=== PATIENT | male | born 1990 | race African-American/Black ===

== ENCOUNTER 2017-09-16 23:05 | Emergency (ER) | payer SELFPAY ==
[2017-09-16 23:30] LABS: Bilirubin Negative (Negative); Blood, Urine Negative (Negative); Clarity CLEAR (Clear); Glucose, Urine (Dipstick) Negative (Negative); Leukocyte Negative (Negative); Nitrite Negative (Negative); Protein, Urine (Dipstick) Negative (Neg-Trace)
[2017-09-16 23:40] LABS: #Basophils 0.1 thou/uL (0.0-0.2); #Eosinphils 0.1 thou/uL (0.0-0.7); #Lymphocytes 3.8 thou/uL (1.20-3.40); #Monocytes 0.5 thou/uL (0.11-0.59); #Neutrophils 4.6 thou/uL (1.40-6.50); %Basophils 0.8 % (0.0-1.0); %Eosinophils 0.8 % (0.0-10.0); %Lymphocytes 41.9 % (21.0-51.0); %Monocytes 5.7 % (0.0-10.0); %Neutrophils 50.7 % (42.0-75.0); Hemoglobin 15.5 g/dL (14.0-18.0); Mean Corpuscular HGB CONC 33.8 g/dL (32.0-36.0); Mean Corpuscular Hemoglobin 29.3 pg (27.0-31.0); Mean Corpuscular Volume 86.8 fl (80.0-94.0); Platelet Count 238 thou/uL (130-400); RBC Distribution Width 11.7 % (11.5-14.5); Red Blood Cell (RBC) Count 5.28 mill/uL (4.70-6.10)
[2017-09-17] LABS: ALT (SGPT) 13 U/L (8-55); AST (SGOT) 18 U/L (5-34); Albumin 4.5 g/dL (3.5-5.0); Alkaline Phosphatase 65 U/L (40-150); Anion Gap 13 mmol/L (10-20); BUN (Urea Nitrogen) 13 mg/dL (8.9-20.6); Bilirubin, Total 0.4 mg/dL (0.2-1.2); Calc. Creatinine Clearance 0 mL/min (70-130); Calcium 9.9 mg/dL (7.8-10.44); Carbon Dioxide 26 mmol/L (22-29); Chloride 103 mmol/L (98-107); Estimated GFR-MDRD Greater than 90; Globulin 3.9 g/dL (2.4-3.5); Glucose 93 mg/dL (70-105); Lipase 12 U/L (8-78); Potassium 4.1 mmol/L (3.5-5.1); Protein, Total 8.4 g/dL (6.0-8.3); Sodium 138 mmol/L (136-145)
[2017-09-17] MEDS ORDERED: Ondansetron ODT 8 MG TAB ONE (00:17)
== END 2017-09-17 01:25 | disposition home or self-care (01) ==
LOC: ERS 23:05
DX: K52.9 Noninfective gastroenteritis and colitis, unspecified (principal)
CPT/HCPCS: 36415; 80053; 81003; 83690; 85025; 99284

== ENCOUNTER 2023-12-21 21:41 | Inpatient (IN) | payer OTHER ==
[~2023-12-21 21:41] MED LIST: Iopamidol-370 76% 500 ML MDV (1 ML CHARGE) ONE
[2023-12-21] MEDS ORDERED: Sodium Chloride 0.9% 100 ML ONE (21:44)
[2023-12-21] MEDS ORDERED: Boostrix 0.5 ML (Tdap) VIAL (>/=7 yrs of age) ONE (21:44)
[2023-12-21] MEDS ORDERED: CEFAZOLIN 2 GM VIAL ONE (21:44)
[2023-12-21 21:58] LABS: #Basophils 0.05 10x3/uL (0.0-0.2); %Basophils 0.4 % (0.0-1.0); %Eosinophils 1.7 % (0.0-10.0); %Lymphocytes 52.3 % (21.0-51.0); %Neutrophils 39.2 % (42.0-75.0); Hemoglobin 14.5 g/dL (14.0-18.0); Mean Corpuscular HGB CONC 33.7 g/dL (32.0-36.0); Mean Corpuscular Hemoglobin 28.7 pg (27.0-31.0); Mean Corpuscular Volume 85.1 fL (78.0-98.0); Platelet Count 277 10x3/uL (130-400); RBC Distribution Width 12.5 % (11.5-14.5); Red Blood Cell (RBC) Count 5.05 mill/uL (4.70-6.10)
[2023-12-21] MEDS ORDERED: fentaNYL 50 mcg/mL 1 mL Vial ONE ×2 (21:59→22:45)
[2023-12-21 22:16] LABS: ALT (SGPT) 27 U/L (8-55); AST (SGOT) 25 U/L (5-34); Albumin 3.5 g/dL (3.5-5.0); Alkaline Phosphatase 65 U/L (40-110); Anion Gap 15 mmol/L (10-20); BUN (Urea Nitrogen) 13 mg/dL (8.9-20.6); Bilirubin, Total 0.3 mg/dL (0.2-1.2); Calc. Creatinine Clearance 0 mL/min (70-130); Calcium 9.2 mg/dL (7.8-10.44); Carbon Dioxide 21 mmol/L (22-29); Chloride 108 mmol/L (98-107); Estimated GFR 85; Globulin 4.1 g/dL (2.4-3.5); Glucose 129 mg/dL (70-105); Potassium 3.5 mmol/L (3.5-5.1); Protein, Total 7.6 g/dL (6.0-8.3); Sodium 140 mmol/L (136-145)
[2023-12-21] MEDS ORDERED: Ketamine In 0.9 % NaCl 50 MG/5 ML SYRINGE ONE (23:25)
[2023-12-22] MEDS ORDERED: Glucagon 1 MG/ML KIT IM PRN (00:45)
[2023-12-22] MEDS ORDERED: HYDROcodone/Acetaminophen 10/325 mg Tablet PO PRN (00:45)
[2023-12-22] MEDS ORDERED: Ondansetron ODT 4 MG TAB PO PRN (00:45)
[2023-12-22] MEDS ORDERED: Dextrose 5% in Water 1,000 ML IV PRN (00:45)
[2023-12-22] MEDS ORDERED: Ondansetron PF 4 MG/2 ML Vial IVP PRN (00:45)
[2023-12-22] MEDS ORDERED: Dextrose 50% Abboject 50 ML SYRINGE SLOW IVP PRN (00:45)
[2023-12-22] MEDS ORDERED: hydrALAZINE 20 MG/ML VIAL SLOW IVP PRN (00:45)
[2023-12-22] MEDS ORDERED: fentaNYL 50 mcg/mL 1 mL Vial ONE (01:09)
[2023-12-22] MEDS: Morphine 4 MG/ML VIAL SLOW IVP PRN (02:16)
[2023-12-22] MEDS: Lactated Ringer's 1,000 ML IV SCH (02:48)
[2023-12-22] MEDS: HYDROmorphone 0.5 MG/0.5 ML SYRINGE SLOW IVP SCH (03:05)
[2023-12-22] MEDS ORDERED: HYDROmorphone/PF 10 MG in Sodium Chloride 0.9% 99 ML IVPB PRN (03:30)
[2023-12-22] MEDS: HYDROmorphone/PF 10 MG in Sodium Chloride 0.9% 99 ML IVPB PRN (05:11)
[2023-12-22 05:28] LABS: #Basophils 0.03 10x3/uL (0.0-0.2); #Eosinphils Less than 0.03 10x3/uL (0.0-0.7); %Basophils 0.2 % (0.0-1.0); %Lymphocytes 8.3 % (21.0-51.0); %Monocytes 10.7 % (0.0-10.0); %Neutrophils 80.4 % (42.0-75.0); Hematocrit 37.6 % (42.0-52.0); Hemoglobin 12.7 g/dL (14.0-18.0); Mean Corpuscular HGB CONC 33.8 g/dL (32.0-36.0); Mean Corpuscular Hemoglobin 27.9 pg (27.0-31.0); Mean Corpuscular Volume 82.6 fL (78.0-98.0); Mean Platelet Volume 9.8 fL (7.4-10.4); Platelet Count 238 10x3/uL (130-400); RBC Distribution Width 12.1 % (11.5-14.5); Red Blood Cell (RBC) Count 4.55 mill/uL (4.70-6.10)
[2023-12-22 05:56] LABS: Anion Gap 12 mmol/L (10-20); BUN (Urea Nitrogen) 13 mg/dL (8.9-20.6); Calc. Creatinine Clearance 125 mL/min (70-130); Calcium 8.8 mg/dL (7.8-10.44); Carbon Dioxide 24 mmol/L (22-29); Chloride 109 mmol/L (98-107); Estimated GFR 92; Glucose 146 mg/dL (70-105); Potassium 4.2 mmol/L (3.5-5.1); Sodium 141 mmol/L (136-145)
[2023-12-22] MEDS: Ketorolac Tromethamine 30 MG (1 mL) VIAL IVP SCH (06:10)
[2023-12-22] MEDS ORDERED: Vancomycin 1 GM VIAL ONE (08:01)
[2023-12-22] MEDS ORDERED: CEFAZOLIN 2 GM VIAL ONE (08:10)
[2023-12-22] MEDS ORDERED: Sodium Chloride 0.9% 100 ML ONE (08:10)
[2023-12-22] MEDS ORDERED: fentaNYL PF 100 MCG/2 ML SYRINGE ONE ×2 (08:11→10:07)
[2023-12-22] MEDS ORDERED: Midazolam HCl 2 mg/2 ml Vial ONE (08:11)
[2023-12-22] MEDS ORDERED: PROPOFOL 20 ML ONE (08:11)
[2023-12-22] MEDS ORDERED: Dexmedetomidine 200 MCG/2 ML VIAL ONE ×2 (08:11→08:20)
[2023-12-22] MEDS ORDERED: Ketamine In 0.9 % NaCl 50 MG/5 ML SYRINGE ONE (08:12)
[2023-12-22] MEDS ORDERED: Rocuronium Bromide 10 MG/ML (10ML VIAL) ONE (08:30)
[2023-12-22] MEDS ORDERED: Lidocaine 1% PF 5 ML VIAL ONE (08:30)
[2023-12-22] MEDS ORDERED: PHENYLEPHRINE-NS 100 MCG/ML 10 ML SYRINGE ONE (08:44)
[2023-12-22] MEDS ORDERED: Dexamethasone 4 mg/ml Vial ONE (08:59)
[2023-12-22] MEDS: Famotidine 20 MG TAB PO SCH (10:27)
[2023-12-22] MEDS ORDERED: ePHEDrine Sulfate 50 MG/10 ML VIAL ONE (10:42)
[2023-12-22] MEDS ORDERED: Albumin 5% 500 ML ONE (10:43)
[2023-12-22] MEDS ORDERED: HYDROmorphone 2 MG/ML VIAL ONE (11:02)
[2023-12-22] MEDS ORDERED: SUGAMMADEX SODIUM 200 MG/2 ML VIAL ONE (12:04)
[2023-12-22] MEDS ORDERED: Ondansetron PF 4 MG/2 ML Vial ONE (12:27)
[2023-12-22] MEDS ORDERED: Communication Order-Pharmacy FS SCH (13:15)
[2023-12-22] MEDS: CEFAZOLIN 2 GM in Sodium Chloride 0.9% 100 ML IVPB SCH (15:45)
[2023-12-23 05:30] LABS: ALT (SGPT) 20 U/L (8-55); AST (SGOT) 60 U/L (5-34); Albumin 2.6 g/dL (3.5-5.0); Alkaline Phosphatase 34 U/L (40-110); Anion Gap 11 mmol/L (10-20); BUN (Urea Nitrogen) 9 mg/dL (8.9-20.6); Bilirubin, Total 0.4 mg/dL (0.2-1.2); Calc. Creatinine Clearance 150 mL/min (70-130); Carbon Dioxide 25 mmol/L (22-29); Chloride 108 mmol/L (98-107); Estimated GFR 114; Globulin 2.2 g/dL (2.4-3.5); Glucose 102 mg/dL (70-105); Potassium 3.7 mmol/L (3.5-5.1); Protein, Total 4.8 g/dL (6.0-8.3); Sodium 140 mmol/L (136-145)
[2023-12-23 06:14] LABS: #Basophils Less than 0.03 10x3/uL (0.0-0.2); %Basophils 0.1 % (0.0-1.0); %Eosinophils 0.6 % (0.0-10.0); %Lymphocytes 30.3 % (21.0-51.0); %Monocytes 10.2 % (0.0-10.0); %Neutrophils 58.6 % (42.0-75.0); Hematocrit 21.4 % (42.0-52.0); Hemoglobin 7.2 g/dL (14.0-18.0); Mean Corpuscular HGB CONC 33.6 g/dL (32.0-36.0); Mean Corpuscular Hemoglobin 29.1 pg (27.0-31.0); Mean Corpuscular Volume 86.6 fL (78.0-98.0); Platelet Count 147 10x3/uL (130-400); RBC Distribution Width 12.6 % (11.5-14.5); Red Blood Cell (RBC) Count 2.47 mill/uL (4.70-6.10)
[2023-12-23 12:12] LABS: Hemoglobin 7.1 g/dL (14.0-18.0)
[2023-12-23] MEDS: Acetaminophen 325 MG TAB PO PRN (14:48)
[2023-12-23 23:13] LABS: Hematocrit 25.1 % (42.0-52.0); Hemoglobin 8.5 g/dL (14.0-18.0)
[2023-12-24 07:53] LABS: Hematocrit 23.1 % (42.0-52.0)
[2023-12-24] MEDS: Senokot S 8.6-50 MG TAB PO SCH (08:58)
[2023-12-25 06:38] LABS: #Basophils Less than 0.03 10x3/uL (0.0-0.2); %Basophils 0.1 % (0.0-1.0); %Eosinophils 0.7 % (0.0-10.0); %Lymphocytes 6.2 % (21.0-51.0); %Monocytes 6.3 % (0.0-10.0); %Neutrophils 85.8 % (42.0-75.0); Hematocrit 22.3 % (42.0-52.0); Hemoglobin 7.7 g/dL (14.0-18.0); Mean Corpuscular HGB CONC 34.5 g/dL (32.0-36.0); Mean Corpuscular Hemoglobin 28.5 pg (27.0-31.0); Mean Corpuscular Volume 82.6 fL (78.0-98.0); Mean Platelet Volume 9.9 fL (7.4-10.4); Platelet Count 178 10x3/uL (130-400); RBC Distribution Width 13.3 % (11.5-14.5)
[2023-12-25] MEDS: Piperacillin/Tazobactam 3.375 GM in Sodium Chloride 0.9% 100 ML IVPB SCH ×2 (08:44→17:33)
[2023-12-25] MEDS: Bacitracin Zinc Ointment 30 gm TUBE TOP SCH (11:42)
[2023-12-25] MEDS ORDERED: Piperacillin/Tazobactam 3.375 GM in Sodium Chloride 0.9% 100 ML IVPB SCH ×2 (12:00→14:00)
[2023-12-25] MEDS ORDERED: HYDROcodone/Acetaminophen 10/325 mg Tablet PO PRN ×2 (12:55)
[2023-12-25] MEDS ORDERED: HYDROcodone/Acetaminophen 5/325 mg Tablet PO PRN (14:02)
[2023-12-25] MEDS: HYDROcodone/Acetaminophen 5/325 mg Tablet PO PRN (17:32)
[2023-12-25] MEDS: Gabapentin 300 MG CAP PO SCH (17:33)
[2023-12-26 03:41] LABS: #Basophils Less than 0.03 10x3/uL (0.0-0.2); %Basophils 0.1 % (0.0-1.0); %Eosinophils 1.1 % (0.0-10.0); %Lymphocytes 9.5 % (21.0-51.0); %Monocytes 7.6 % (0.0-10.0); %Neutrophils 79.8 % (42.0-75.0); Hemoglobin 7.4 g/dL (14.0-18.0); Mean Corpuscular HGB CONC 35.2 g/dL (32.0-36.0); Mean Corpuscular Hemoglobin 28.7 pg (27.0-31.0); Mean Corpuscular Volume 81.4 fL (78.0-98.0); Mean Platelet Volume 9.7 fL (7.4-10.4); Platelet Count 218 10x3/uL (130-400); RBC Distribution Width 13.2 % (11.5-14.5); Red Blood Cell (RBC) Count 2.58 mill/uL (4.70-6.10)
[2023-12-26 04:06] LABS: ALT (SGPT) 85 U/L (8-55); AST (SGOT) 160 U/L (5-34); Alkaline Phosphatase 81 U/L (40-110); Anion Gap 13 mmol/L (10-20); BUN (Urea Nitrogen) 9 mg/dL (8.9-20.6); Bilirubin, Total 1.5 mg/dL (0.2-1.2); Calc. Creatinine Clearance 151 mL/min (70-130); Calcium 8.3 mg/dL (7.8-10.44); Carbon Dioxide 25 mmol/L (22-29); Chloride 103 mmol/L (98-107); Estimated GFR 116; Globulin 3.6 g/dL (2.4-3.5); Glucose 125 mg/dL (70-105); Potassium 2.7 mmol/L (3.5-5.1); Protein, Total 5.6 g/dL (6.0-8.3); Sodium 138 mmol/L (136-145)
[2023-12-26] MEDS: Potassium Chloride 20 MEQ TAB PO SCH ×2 (05:56→12:56)
[2023-12-26 06:30] LABS: Magnesium 2.1 mg/dL (1.6-2.6)
[2023-12-26] MEDS ORDERED: Electrolyte Replacement Protocol FS PRN (07:15)
[2023-12-26 11:56] LABS: Hematocrit 21.8 % (42.0-52.0); Hemoglobin 7.6 g/dL (14.0-18.0)
[2023-12-26 12:12] LABS: Anion Gap 11 mmol/L (10-20); BUN (Urea Nitrogen) 9 mg/dL (8.9-20.6); Calc. Creatinine Clearance 162 mL/min (70-130); Calcium 8.6 mg/dL (7.8-10.44); Carbon Dioxide 25 mmol/L (22-29); Chloride 105 mmol/L (98-107); Estimated GFR 119; Glucose 109 mg/dL (70-105); Potassium 2.9 mmol/L (3.5-5.1); Sodium 138 mmol/L (136-145)
[2023-12-27 07:23] LABS: #Basophils Less than 0.03 10x3/uL (0.0-0.2); %Basophils 0.1 % (0.0-1.0); %Eosinophils 1.6 % (0.0-10.0); %Lymphocytes 11.1 % (21.0-51.0); %Monocytes 11.8 % (0.0-10.0); %Neutrophils 70.6 % (42.0-75.0); Hematocrit 21.1 % (42.0-52.0); Mean Corpuscular HGB CONC 33.2 g/dL (32.0-36.0); Mean Corpuscular Hemoglobin 28.3 pg (27.0-31.0); Mean Corpuscular Volume 85.4 fL (78.0-98.0); Mean Platelet Volume 9.4 fL (7.4-10.4); Platelet Count 289 10x3/uL (130-400); RBC Distribution Width 13.5 % (11.5-14.5); Red Blood Cell (RBC) Count 2.47 mill/uL (4.70-6.10)
[2023-12-27 07:43] LABS: Hematocrit 20.8 % (42.0-52.0); Mean Corpuscular HGB CONC 33.7 g/dL (32.0-36.0); Mean Corpuscular Hemoglobin 28.6 pg (27.0-31.0); Mean Corpuscular Volume 84.9 fL (78.0-98.0); Mean Platelet Volume 9.5 fL (7.4-10.4); Platelet Count 283 10x3/uL (130-400); RBC Distribution Width 13.6 % (11.5-14.5); Red Blood Cell (RBC) Count 2.45 mill/uL (4.70-6.10)
[2023-12-27 08:00] LABS: Anion Gap 11 mmol/L (10-20); BUN (Urea Nitrogen) 10 mg/dL (8.9-20.6); Calc. Creatinine Clearance 159 mL/min (70-130); Calcium 8.5 mg/dL (7.8-10.44); Carbon Dioxide 27 mmol/L (22-29); Chloride 107 mmol/L (98-107); Estimated GFR 119; Glucose 94 mg/dL (70-105); Potassium 3.4 mmol/L (3.5-5.1); Sodium 142 mmol/L (136-145)
[2023-12-27 08:01] LABS: ALT (SGPT) 93 U/L (8-55); AST (SGOT) 115 U/L (5-34); Albumin 1.9 g/dL (3.5-5.0); Alkaline Phosphatase 105 U/L (40-110); Anion Gap 9 mmol/L (10-20); BUN (Urea Nitrogen) 11 mg/dL (8.9-20.6); Bilirubin, Total 1.3 mg/dL (0.2-1.2); Calc. Creatinine Clearance 159 mL/min (70-130); Calcium 8.5 mg/dL (7.8-10.44); Carbon Dioxide 28 mmol/L (22-29); Chloride 107 mmol/L (98-107); Estimated GFR 119; Globulin 3.9 g/dL (2.4-3.5); Glucose 94 mg/dL (70-105); Potassium 3.3 mmol/L (3.5-5.1); Protein, Total 5.8 g/dL (6.0-8.3); Sodium 141 mmol/L (136-145)
[2023-12-27 08:15] LABS: Band 7 % (5-11); Large Platelets 2.9 % (0-5); Lymphocytes 11 % (21-51); Monocytes 9 % (0-10); Neutrophil 72 % (42-75); Nucleated RBC (Manual Ct) 1 % (0); Platelet Adequacy Comment Platelets Normal; RBC Morphology Within Normal Limits; Reactive Lymphocytes 1 % (0-10)
[2023-12-27] MEDS: Polyethylene Glycol 3350 17 GM Packet PO PRN (08:52)
[2023-12-27] MEDS: Potassium Chloride 20 MEQ TAB PO SCH (11:19)
[2023-12-27 17:09] LABS: Hematocrit 22.3 % (42.0-52.0); Hemoglobin 7.7 g/dL (14.0-18.0)
[2023-12-27 17:22] LABS: Bacteria/HPF None Seen HPF (None Seen); Bilirubin Negative (Negative); Blood, Urine 1+ (Negative); Clarity Clear (Clear); Glucose, Urine (Dipstick) Normal (Negative); Ketone, Urine Negative (Negative); Leukocyte Negative Leu/uL (Negative); Nitrite Negative (Negative); Protein, Urine (Dipstick) 30 mg/dL (Neg-Trace); RBC/HPF 0-3 HPF (0-3); Specific Gravity, Urine 1.009 (1.002-1.036); Squamous Epithelial None Seen HPF (0-3); WBC/HPF 0-3 HPF (0-3); pH, Urine 7.5 (5.0-9.0)
[2023-12-28] MEDS: Methocarbamol 500 MG TAB PO PRN (00:08)
[2023-12-28 08:06] LABS: Hematocrit 20.8 % (42.0-52.0); Hemoglobin 6.9 g/dL (14.0-18.0); Mean Corpuscular HGB CONC 33.2 g/dL (32.0-36.0); Mean Corpuscular Hemoglobin 28.3 pg (27.0-31.0); Mean Corpuscular Volume 85.2 fL (78.0-98.0); Mean Platelet Volume 9.4 fL (7.4-10.4); Platelet Count 382 10x3/uL (130-400); RBC Distribution Width 13.7 % (11.5-14.5); Red Blood Cell (RBC) Count 2.44 mill/uL (4.70-6.10)
[2023-12-28 08:41] LABS: Band 12 % (5-11); Eosinophils 3 % (0-10); Large Platelets 3.9 % (0-5); Lymphocytes 7 % (21-51); Monocytes 7 % (0-10); Neutrophil 71 % (42-75); Nucleated RBC (Manual Ct) 5 % (0); Platelet Adequacy Comment Platelets Normal; Polychromasia SLIGHT = 2-3 cells HPF (0-2); Schistocytes SLIGHT = 2-5 cells HPF (0-1)
[2023-12-28] MEDS: Polyethylene Glycol 3350 17 GM Packet PO SCH (10:01)
[2023-12-28] MEDS: fentaNYL 50 mcg/mL 1 mL Vial SLOW IVP PRN (12:24)
[2023-12-28] MEDS: diphenhydrAMINE 50 MG/ML VIAL IVP SCH (18:08)
[2023-12-29 06:08] LABS: ALT (SGPT) 102 U/L (8-55); AST (SGOT) 98 U/L (5-34); Alkaline Phosphatase 107 U/L (40-110); Anion Gap 16 mmol/L (10-20); BUN (Urea Nitrogen) 10 mg/dL (8.9-20.6); Calc. Creatinine Clearance 161 mL/min (70-130); Calcium 8.5 mg/dL (7.8-10.44); Carbon Dioxide 23 mmol/L (22-29); Chloride 106 mmol/L (98-107); Estimated GFR 120; Globulin 4.6 g/dL (2.4-3.5); Glucose 100 mg/dL (70-105); Potassium 3.6 mmol/L (3.5-5.1); Protein, Total 6.6 g/dL (6.0-8.3); Sodium 141 mmol/L (136-145)
[2023-12-29 06:17] LABS: Hematocrit 24.4 % (42.0-52.0); Hemoglobin 8.2 g/dL (14.0-18.0); Mean Corpuscular HGB CONC 33.6 g/dL (32.0-36.0); Mean Corpuscular Hemoglobin 28.5 pg (27.0-31.0); Mean Corpuscular Volume 84.7 fL (78.0-98.0); Mean Platelet Volume 9.1 fL (7.4-10.4); Platelet Count 497 10x3/uL (130-400); RBC Distribution Width 14.1 % (11.5-14.5); Red Blood Cell (RBC) Count 2.88 mill/uL (4.70-6.10)
[2023-12-29 07:19] LABS: Anisocytosis MODERATE=16-30 cells HPF (0-5); Band 14 % (5-11); Eosinophils 3 % (0-10); Large Platelets 4.9 % (0-5); Lymphocytes 11 % (21-51); Macrocytosis SLIGHT = 6-15 cells HPF (0-5); Metamyelocyte 2 % (0-0); Monocytes 11 % (0-10); Neutrophil 60 % (42-75); Nucleated RBC (Manual Ct) 2 % (0); Platelet Adequacy Comment Platelets Normal; Polychromasia SLIGHT = 2-3 cells HPF (0-2); Smudge Cells 20.4 %
[2023-12-30 08:22] LABS: Anisocytosis MODERATE=16-30 cells HPF (0-5); Band 3 % (5-11); Eosinophils 3 % (0-10); Hypochromia SLIGHT = 6-15 cells HPF (0-5); Lymphocytes 10 % (21-51); Macrocytosis SLIGHT = 6-15 cells HPF (0-5); Monocytes 11 % (0-10); Neutrophil 70 % (42-75); Platelet Adequacy Comment Platelets Increased; Poikilocytosis SLIGHT = 6-15 cells HPF (0-5); Polychromasia MODERATE = 3-4 cells HPF (0-2); Reactive Lymphocytes 2 % (0-10)
[2023-12-30 08:24] LABS: Hematocrit 25.8 % (42.0-52.0); Hemoglobin 8.7 g/dL (14.0-18.0); Mean Corpuscular HGB CONC 33.7 g/dL (32.0-36.0); Mean Corpuscular Hemoglobin 28.1 pg (27.0-31.0); Mean Corpuscular Volume 83.2 fL (78.0-98.0); Platelet Count 584 10x3/uL (130-400); RBC Distribution Width 14.4 % (11.5-14.5)
[2023-12-31] MEDS: Lorazepam 2 MG/ML VIAL SLOW IVP PRN (01:32)
[2023-12-31 08:05] LABS: Hematocrit 28.4 % (42.0-52.0); Hemoglobin 9.3 g/dL (14.0-18.0); Mean Corpuscular HGB CONC 32.7 g/dL (32.0-36.0); Mean Corpuscular Volume 88.5 fL (78.0-98.0); Mean Platelet Volume 9.1 fL (7.4-10.4); Platelet Count 691 10x3/uL (130-400); Red Blood Cell (RBC) Count 3.21 mill/uL (4.70-6.10)
[2023-12-31 08:26] LABS: Band 5 % (5-11); Lymphocytes 15 % (21-51); Monocytes 6 % (0-10); Neutrophil 74 % (42-75); Platelet Adequacy Comment Platelets Increased; Polychromasia SLIGHT = 2-3 cells HPF (0-2); Schistocytes SLIGHT = 2-5 cells HPF (0-1); Target Cells SLIGHT = 2-5 cells HPF (0-1)
[2023-12-31] MEDS ORDERED: PROPOFOL 20 ML ONE ×2 (10:13→12:02)
[2023-12-31] MEDS ORDERED: Vancomycin 1 GM VIAL ONE (11:43)
[2023-12-31] MEDS ORDERED: fentaNYL PF 100 MCG/2 ML SYRINGE ONE (12:02)
[2023-12-31] MEDS ORDERED: Midazolam HCl 2 mg/2 ml Vial ONE (12:20)
[2023-12-31] MEDS ORDERED: Dexmedetomidine 200 MCG/2 ML VIAL ONE (12:32)
[2023-12-31] MEDS ORDERED: HYDROmorphone 2 MG/ML VIAL ONE (12:44)
[2023-12-31] MEDS ORDERED: PHENYLEPHRINE-NS 100 MCG/ML 10 ML SYRINGE ONE ×2 (12:44→13:02)
[2023-12-31] MEDS ORDERED: Ondansetron PF 4 MG/2 ML Vial ONE (13:09)
[2023-12-31] MEDS ORDERED: Communication Order-Pharmacy FS SCH (13:30)
[2023-12-31] MEDS: HYDROcodone/Acetaminophen 10/325 mg Tablet PO PRN (16:07)
[2023-12-31] MEDS: Ketorolac Tromethamine 30 MG (1 mL) VIAL IVP SCH (17:13)
[2024-01-01] MEDS: HYDROcodone/Acetaminophen 10/325 mg Tablet PO PRN (00:55)
[2024-01-01 05:40] LABS: Hemoglobin 7.8 g/dL (14.0-18.0); Mean Corpuscular HGB CONC 32.5 g/dL (32.0-36.0); Mean Platelet Volume 9.2 fL (7.4-10.4); Platelet Count 750 10x3/uL (130-400); RBC Distribution Width 15.4 % (11.5-14.5); Red Blood Cell (RBC) Count 2.79 mill/uL (4.70-6.10)
[2024-01-01 06:43] LABS: Band 3 % (5-11); Lymphocytes 13 % (21-51); Metamyelocyte 2 % (0-0); Monocytes 3 % (0-10); Myelocyte 3 % (0-0); Neutrophil 76 % (42-75); Platelet Adequacy Comment Platelets Increased; Polychromasia SLIGHT = 2-3 cells HPF (0-2); RBC Morphology Within Normal Limits
[2024-01-02] MEDS: Vancomycin (BATCH) 2 GM in Premix 1 BAG IVPB SCH (16:56)
[2024-01-03 05:28] LABS: #Basophils 0.04 10x3/uL (0.0-0.2); %Basophils 0.3 % (0.0-1.0); %Eosinophils 1.9 % (0.0-10.0); %Lymphocytes 23.1 % (21.0-51.0); %Monocytes 7.5 % (0.0-10.0); Hematocrit 21.9 % (42.0-52.0); Hemoglobin 6.9 g/dL (14.0-18.0); Mean Corpuscular HGB CONC 31.5 g/dL (32.0-36.0); Platelet Count 740 10x3/uL (130-400); RBC Distribution Width 16.2 % (11.5-14.5); Red Blood Cell (RBC) Count 2.38 mill/uL (4.70-6.10)
[2024-01-03 05:57] LABS: Vancomycin, Random 6.3 ug/mL (See Comment)
[2024-01-03 06:10] LABS: ALT (SGPT) 228 U/L (8-55); AST (SGOT) 134 U/L (5-34); Albumin 2.4 g/dL (3.5-5.0); Alkaline Phosphatase 114 U/L (40-110); Anion Gap 10 mmol/L (10-20); BUN (Urea Nitrogen) 18 mg/dL (8.9-20.6); Bilirubin, Total 0.6 mg/dL (0.2-1.2); Calc. Creatinine Clearance 146 mL/min (70-130); Calcium 8.5 mg/dL (7.8-10.44); Carbon Dioxide 24 mmol/L (22-29); Chloride 106 mmol/L (98-107); Estimated GFR 119; Globulin 4.3 g/dL (2.4-3.5); Glucose 92 mg/dL (70-105); Potassium 4.1 mmol/L (3.5-5.1); Protein, Total 6.7 g/dL (6.0-8.3); Sodium 136 mmol/L (136-145)
[2024-01-03] MEDS ORDERED: Vancomycin (BATCH) 1.5 GM/300 ML BAG ONE (09:05)
[2024-01-03] MEDS ORDERED: fentaNYL PF 100 MCG/2 ML SYRINGE ONE (09:06)
[2024-01-03] MEDS ORDERED: Lidocaine 1% PF 5 ML VIAL ONE (09:07)
[2024-01-03] MEDS ORDERED: Midazolam HCl 2 mg/2 ml Vial ONE (09:07)
[2024-01-03] MEDS ORDERED: PROPOFOL 20 ML ONE (09:07)
[2024-01-03] MEDS: Vancomycin (BATCH) 1.5 GM in Premix 1 BAG IVPB SCH (09:08)
[2024-01-03] MEDS ORDERED: Ketamine In 0.9 % NaCl 50 MG/5 ML SYRINGE ONE (10:39)
[2024-01-03] MEDS ORDERED: Ondansetron PF 4 MG/2 ML Vial ONE (10:44)
[2024-01-03] MEDS ORDERED: Dexamethasone 20 MG/5 ML VIAL ONE (10:44)
[2024-01-03] MEDS ORDERED: Morphine 2 MG/ML VIAL SLOW IVP PRN (11:20)
[2024-01-03] MEDS ORDERED: Communication Order-Pharmacy FS SCH ×2 (11:30→15:30)
[2024-01-03] MEDS: Morphine 4 MG/ML VIAL SLOW IVP PRN (11:52)
[2024-01-03] MEDS ORDERED: FENTANYL 500 MCG/10 ML VIAL 2,000 MCG in Sodium Chloride 0.9% 60 ML IV PRN (15:21)
[2024-01-03] MEDS ORDERED: diphenhydrAMINE 50 MG/ML VIAL IM PRN (15:21)
[2024-01-03] MEDS ORDERED: Naloxone HCl 0.4 mg/ml Vial IV PRN (15:21)
[2024-01-03] MEDS ORDERED: Promethazine HCl 25 MG/ML VIAL IM PRN (15:21)
[2024-01-03] MEDS ORDERED: diphenhydrAMINE 25 MG CAP PO PRN (15:21)
[2024-01-03] MEDS ORDERED: Ondansetron PF 4 MG/2 ML Vial IVP PRN (15:21)
[2024-01-03] MEDS: Fentanyl CADD 100 ML IVPB SCH (16:09)
[2024-01-03] MEDS: Vancomycin (BATCH) 1.25 GM in Premix 1 BAG IVPB SCH (16:52)
[2024-01-03 19:51] LABS: #Basophils 0.04 10x3/uL (0.0-0.2); #Eosinphils Less than 0.03 10x3/uL (0.0-0.7); %Basophils 0.2 % (0.0-1.0); %Eosinophils 0.1 % (0.0-10.0); %Lymphocytes 7.5 % (21.0-51.0); %Monocytes 3.3 % (0.0-10.0); %Neutrophils 86.8 % (42.0-75.0); Hematocrit 26.6 % (42.0-52.0); Hemoglobin 8.5 g/dL (14.0-18.0); Mean Corpuscular Hemoglobin 28.4 pg (27.0-31.0); Mean Platelet Volume 8.8 fL (7.4-10.4); Platelet Count 861 10x3/uL (130-400); Red Blood Cell (RBC) Count 2.99 mill/uL (4.70-6.10)
[2024-01-03] MEDS: Aspirin 81 mg Enteric Coated Tablet PO SCH (20:04)
[2024-01-04 04:32] LABS: #Basophils 0.03 10x3/uL (0.0-0.2); %Basophils 0.2 % (0.0-1.0); %Eosinophils 0.8 % (0.0-10.0); %Monocytes 9.2 % (0.0-10.0); Hematocrit 23.5 % (42.0-52.0); Hemoglobin 7.7 g/dL (14.0-18.0); Mean Corpuscular HGB CONC 32.8 g/dL (32.0-36.0); Mean Corpuscular Hemoglobin 28.8 pg (27.0-31.0); Mean Platelet Volume 8.9 fL (7.4-10.4); Platelet Count 848 10x3/uL (130-400); RBC Distribution Width 16.2 % (11.5-14.5); Red Blood Cell (RBC) Count 2.67 mill/uL (4.70-6.10)
[2024-01-04 04:59] LABS: Vancomycin, Random 7.1 ug/mL (See Comment)
[2024-01-04] MEDS: Vancomycin (BATCH) 1.5 GM in Premix 1 BAG IVPB SCH (15:45)
[2024-01-05] MEDS: Cefepime 2 GM in Sodium Chloride 0.9% 100 ML IVPB SCH (01:01)
[2024-01-05] MEDS: Bacitracin Zinc Ointment 30 gm TUBE TOP SCH (15:15)
[2024-01-05] MEDS: Enoxaparin 40 MG (0.4 mL) SYRINGE SC SCH (21:11)
[2024-01-05] MEDS: Senokot S 8.6-50 MG TAB PO SCH (21:12)
[2024-01-06 12:41] LABS: #Basophils 0.05 10x3/uL (0.0-0.2); %Basophils 0.5 % (0.0-1.0); %Eosinophils 3.2 % (0.0-10.0); %Lymphocytes 25.8 % (21.0-51.0); %Monocytes 6.6 % (0.0-10.0); Hematocrit 28.6 % (42.0-52.0); Mean Corpuscular HGB CONC 31.5 g/dL (32.0-36.0); Mean Corpuscular Hemoglobin 28.1 pg (27.0-31.0); Mean Corpuscular Volume 89.4 fL (78.0-98.0); Mean Platelet Volume 8.7 fL (7.4-10.4); Platelet Count 982 10x3/uL (130-400); RBC Distribution Width 15.5 % (11.5-14.5)
[2024-01-06 13:02] LABS: ALT (SGPT) 154 U/L (8-55); AST (SGOT) 59 U/L (5-34); Albumin 2.8 g/dL (3.5-5.0); Alkaline Phosphatase 135 U/L (40-110); Anion Gap 17 mmol/L (10-20); BUN (Urea Nitrogen) 16 mg/dL (8.9-20.6); Bilirubin, Total 0.5 mg/dL (0.2-1.2); Calc. Creatinine Clearance 148 mL/min (70-130); Calcium 9.8 mg/dL (7.8-10.44); Carbon Dioxide 22 mmol/L (22-29); Chloride 102 mmol/L (98-107); Estimated GFR 119; Globulin 6.3 g/dL (2.4-3.5); Glucose 99 mg/dL (70-105); Potassium 3.6 mmol/L (3.5-5.1); Protein, Total 9.1 g/dL (6.0-8.3); Sodium 137 mmol/L (136-145)
[2024-01-07] MEDS: Ketorolac Tromethamine 30 MG (1 mL) VIAL IVP SCH (12:04)
[2024-01-07] MEDS: oxyCODONE 5 MG TAB PO PRN (12:05)
[2024-01-07] MEDS: Acetaminophen 500 MG TAB PO SCH (12:40)
[2024-01-07 14:31] VITALS: BMI 29.4
[2024-01-07 17:06] LABS: #Basophils 0.05 10x3/uL (0.0-0.2); %Basophils 0.6 % (0.0-1.0); %Eosinophils 2.9 % (0.0-10.0); %Lymphocytes 28.3 % (21.0-51.0); %Monocytes 7.5 % (0.0-10.0); %Neutrophils 59.1 % (42.0-75.0); Hematocrit 28.3 % (42.0-52.0); Hemoglobin 9.3 g/dL (14.0-18.0); Mean Corpuscular HGB CONC 32.9 g/dL (32.0-36.0); Mean Corpuscular Hemoglobin 28.7 pg (27.0-31.0); Mean Corpuscular Volume 87.3 fL (78.0-98.0); Mean Platelet Volume 8.5 fL (7.4-10.4); Platelet Count 951 10x3/uL (130-400); RBC Distribution Width 15.1 % (11.5-14.5); Red Blood Cell (RBC) Count 3.24 mill/uL (4.70-6.10)
[2024-01-07 17:24] LABS: Anion Gap 13 mmol/L (10-20); BUN (Urea Nitrogen) 16 mg/dL (8.9-20.6); Calc. Creatinine Clearance 150 mL/min (70-130); Calcium 9.6 mg/dL (7.8-10.44); Carbon Dioxide 25 mmol/L (22-29); Chloride 103 mmol/L (98-107); Estimated GFR 120; Glucose 89 mg/dL (70-105); Sodium 137 mmol/L (136-145)
[2024-01-08] MEDS: diphenhydrAMINE 50 MG/ML VIAL IVP PRN (02:10)
[2024-01-09] MEDS: hydrOXYzine 10 MG TAB PO PRN (09:01)
[2024-01-09] MEDS: Gabapentin 400 MG CAP PO SCH (16:10)
[2024-01-10 03:46] VITALS: BMI 28.0
[2024-01-11 08:36] VITALS: BP 122/70; TEMP 97.9
== END 2024-01-11 15:24 | disposition home or self-care (01) | DRG 908 ==
LOC: ERS 21:41 → EEVIPCON 21:41 → IMCU/EMU 12-22 00:40 → SURG B 12-26 19:27 → SJJU 12-26 20:19
PROVIDERS: ADMIT Student in an Organized Health Care Education/Training Program; ATTEND Student in an Organized Health Care Education/Training Program
PROC: 0Y6J0Z1 Detachment at Left Lower Leg, High, Open Approach (ICD-10-PCS; principal; 2023-12-22)
PROC: 0PSG06Z Reposition Left Humeral Shaft with Intramedullary Internal Fixation Device, Open Approach (ICD-10-PCS; 2023-12-22)
PROC: 3E033XZ Introduction of Vasopressor into Peripheral Vein, Percutaneous Approach (ICD-10-PCS; 2023-12-22)
PROC: 30233J1 Transfusion of Nonautologous Serum Albumin into Peripheral Vein, Percutaneous Approach (ICD-10-PCS; 2023-12-22)
PROC: 30233N1 Transfusion of Nonautologous Red Blood Cells into Peripheral Vein, Percutaneous Approach (ICD-10-PCS; 2023-12-23)
PROC: 30233K1 Transfusion of Nonautologous Frozen Plasma into Peripheral Vein, Percutaneous Approach (ICD-10-PCS; 2023-12-27)
PROC: 0HBLXZZ Excision of Left Lower Leg Skin, External Approach (ICD-10-PCS; 2023-12-31)
PROC: 0HBLXZZ Excision of Left Lower Leg Skin, External Approach (ICD-10-PCS; 2024-01-03)
DX: S98.912A Complete traumatic amputation of left foot, level unspecified, initial encounter (principal); D62 Acute posthemorrhagic anemia; S42.352A Displaced comminuted fracture of shaft of humerus, left arm, initial encounter for closed fracture; S92.902B Unspecified fracture of left foot, initial encounter for open fracture; S81.012A Laceration without foreign body, left knee, initial encounter; V09.20XA Pedestrian injured in traffic accident involving unspecified motor vehicles, initial encounter; B96.5 Pseudomonas (aeruginosa) (mallei) (pseudomallei) as the cause of diseases classified elsewhere
CPT/HCPCS: 36415; 36416; 36430; 70450; 71045; 71260; 72125; 72170; 74177; 80048; 80053; 80202; 81001; 82565; 83605; 83735; 85014; 85018; 85025; 86140; 86850; 86900; 86901; 87040; 87070; 87077; 87186; 87205; 90471; 90715; 93005; 94760; 96374; 96375; 96376; 97139; 99292; C1713; C1776; G0390; J0692; J1100; J1170; J1200; J1650; J1885; J2060; J2250; J2270; J2405; J2543; J2704; J3010; J3370; J3490; J7120; P9016; P9045; P9059; Q9967